=== PATIENT | male | born 1930 | race Caucasian/White ===

== ENCOUNTER → 2016-10-18 | Outpatient (CLI) | payer MEDICARE | END | disposition home or self-care (01) | LOC: ROC 11:10 | PROVIDERS: ATTEND Radiology Radiation Oncology | DX: D35.2 Benign neoplasm of pituitary gland (principal) | CPT/HCPCS: G0463 ==

== ENCOUNTER → 2017-11-07 | Outpatient (CLI) | payer MEDICARE | LOC: ROC 07:34 | PROVIDERS: ATTEND Radiology Radiation Oncology | DX: Z08 Encounter for follow-up examination after completed treatment for malignant neoplasm (principal); D35.2 Benign neoplasm of pituitary gland; Z98.890 Other specified postprocedural states | CPT/HCPCS: G0463 ==

== ENCOUNTER 2019-11-20 07:23 | Outpatient (CLI) | payer MEDICARE | END 2019-11-20 23:59 | disposition home or self-care (01) | LOC: ROC 07:23 | PROVIDERS: ATTEND Radiology Radiation Oncology | DX: D35.2 Benign neoplasm of pituitary gland (principal) | CPT/HCPCS: G0463 ==

== ENCOUNTER 2021-01-06 10:11 | Observation (INO) | payer MEDICARE ==
[~2021-01-06] VITALS: Ht 170.2 cm; Wt 72.1 kg
[~2021-01-06 10:11] MED LIST: ACET325C6 PO; APIX5TAB PO; ASPRIN PO; ATOR40TA78 PO; BENAZEPRIL; FLEC50TA25 PO; LOSA50TA2 PO; LOVASTATIN; METOPROLOL SUCCINATE PO; OMEGA DHA; TERAZOSIN
[2021-01-06] MEDS ORDERED: ATOR40TA PO (10:48)
[2021-01-06] MEDS ORDERED: LOSA100T14 PO (10:48)
[2021-01-06] MEDS ORDERED: FLEC50TA25 PO (10:48)
[2021-01-06] MEDS ORDERED: APIX5TAB PO (10:48)
[2021-01-06] MEDS: SODIUM CHLORIDE 0.9% 1,000 ML IV SCH ×2 (11:00→17:19)
[2021-01-06 11:14] LABS: BASOPHILS % (AUTO) 1 % (0-1); EOSINOPHILS % (AUTO) 3 % (1-7); LYMPHOCYTES % (AUTO) 28 % (22-44); MEAN CORPUSCULAR HEMOGLOBIN 29.4 pg (27.5-34.5); MEAN CORPUSCULAR HGB CONC 33.9 g/dL (33.2-36.2); MEAN PLATELET VOLUME 7.2 fL (7.4-10.4); MONOCYTES % (AUTO) 7 % (2-9); NEUTROPHILS % (AUTO) 61 % (42-75); PLATELET COUNT 224 x10^3/uL (130-400); RED BLOOD COUNT 4.67 x10^6/uL (4.38-5.82); RED CELL DISTRIBUTION WIDTH 14.4 % (9.4-14.8)
[2021-01-06 11:19] LABS: CALCIUM 9.3 mg/dL (8.5-10.1); CHLORIDE 100 mmol/L (98-107); CREATININE 1.09 mg/dL (0.7-1.3); INTERNATIONAL NORMALIZED RATIO 1.02 (0.93-1.1); PROTHROMBIN TIME 10.9 Seconds (9.6-11.5)
[2021-01-06 11:28] LABS: ANION GAP 3 mmol/L (5-15)
[2021-01-06] MEDS ORDERED: FENTANYL PF 100 MCG/2ML ONE (12:20)
[2021-01-06] MEDS ORDERED: LIDOCAINE 2%, 20ML ONE (12:21)
[2021-01-06] MEDS ORDERED: MIDAZOLAM 1 MG/ML, 5ML ONE (12:21)
[2021-01-06] MEDS ORDERED: CEFAZOLIN PMX 1GM/50ML 50 ML ONE (12:21)
[2021-01-06] MEDS ORDERED: CEFAZOLIN 1,000 MG ONE (12:21)
[2021-01-06] MEDS ORDERED: HOLD MEDICATION MC PRN (14:00)
[2021-01-06] MEDS ORDERED: HYDROcodone/APAP 5/325 TABLET PO PRN (14:00)
[2021-01-06] MEDS ORDERED: ZOLPIDEM 5MG TABLET PO PRN (14:00)
[2021-01-06 15:05] VITALS: BP 126/74
[2021-01-06 16:15] VITALS: BP 163/79
[2021-01-06] MEDS: ACETAMINOPHEN 325 MG TABLET PO PRN ×2 (17:57→22:38)
[2021-01-06 18:27] VITALS: BP 174/78
[2021-01-06] MEDS ORDERED: hydrALAzine 20 MG/ML, 1ML IV PRN (18:30)
[2021-01-06 19:24] VITALS: BP 105/62
[2021-01-06] MEDS ORDERED: ATORVASTATIN 40 MG TABLET PO SCH (21:00)
[2021-01-06] MEDS: SODIUM CHLORIDE FLUSH 10ML SYR IVF SCH (21:35)
[2021-01-06] MEDS: FLECAINIDE 50MG TABLET PO SCH (21:35)
[2021-01-06] MEDS: CEFAZOLIN PMX 1GM/50ML 50 ML IVPB SCH (21:35)
[2021-01-07 02:25] VITALS: BP 104/61
[2021-01-07] MEDS: CEFAZOLIN PMX 1GM/50ML 50 ML IVPB SCH (05:52)
[2021-01-07 07:11] VITALS: BP 146/70
[2021-01-07] MEDS ORDERED: ACET325T26 PO (08:50)
[2021-01-07] MEDS ORDERED: LOSARTAN 100 MG TAB PO SCH (09:00)
[2021-01-07 09:04] VITALS: BP 152/73
[2021-01-07] MEDS: FLECAINIDE 50MG TABLET PO SCH (09:04)
[2021-01-07] MEDS: ACETAMINOPHEN 325 MG TABLET PO PRN (09:04)
[2021-01-07] MEDS: SODIUM CHLORIDE FLUSH 10ML SYR IVF SCH (09:05)
== END 2021-01-07 10:38 | disposition home or self-care (01) ==
LOC: CACL 10:11 → ORIP 13:50 → 5SO 14:44
PROVIDERS: ADMIT Internal Medicine Cardiovascular Disease; ATTEND Internal Medicine Cardiovascular Disease
DX: I49.5 Sick sinus syndrome (principal); I44.30 Unspecified atrioventricular block; I48.0 Paroxysmal atrial fibrillation; E78.5 Hyperlipidemia, unspecified; I10 Essential (primary) hypertension; Z79.899 Other long term (current) drug therapy
CPT/HCPCS: 33208; 36415; 71045; 80048; 85025; 85610; 96365; 96366; 96375; 99156; 99157; C1779; C1785; C1892; G0378; J0360; J0690; J2250; J3010; J3490